=== PATIENT | male | born 1955 | race Caucasian/White ===

== ENCOUNTER 2016-06-16 20:45 | Emergency (ER) | payer MEDICARE, MEDICAID ==
[~2016-06-16] VITALS: Ht 165.1 cm; Wt 90.9 kg
[~2016-06-16 20:45] MED LIST: AMLO10TA5 PO; ASA325 PO; CLOP75TA14 PO; LISINOPRIL PO; METO25T PO; SPRN50T PO; ZOC20 PO
[2016-06-16 21:02] VITALS: BP 219/123; PULSE 66; RESP 24; O2SAT 96
--- NOTE | 2016-06-16 22:02 | DRSVH ---
PROCEDURE: X-RAY CHEST ONE VIEW, PORTABLE ([id number]) INDICATIONS: Respiratory distress TECHNIQUE: One view of the chest was acquired. COMPARISON: None. FINDINGS: Surgical changes and devices: None. Lungs and pleura: No pleural effusions or pneumothorax. Lungs are clear. Mediastinum: Mediastinal contours appear normal. Heart size is normal. Bones and chest wall: No suspicious bony lesions. Overlying soft tissues appear unremarkable. IMPRESSION: No acute pulmonary process. Dictated by: Mari Simpson M.D. on 06/16/2016 at 22:01 Approved by: Mari Simpson M.D. on 06/16/2016 at 22:01
[2016-06-16 23:03] LABS: BASOPHILS % (AUTO) 0.2 % (0-3); MONOCYTES % (AUTO) 6.5 % (4-12); Mean Corpuscular Hemoglobin 24.4 pg (27.0-35.0); Mean Corpuscular Volume 77.8 fL (81-100); NEUTROPHILS % (AUTO) 31.2 % (40-74); Platelet Count 241 bil/L (150-400)
[2016-06-16 23:15] LABS: TROPONIN T 0.01 ug/L (0.0-0.011)
--- NOTE | 2016-06-16 23:17 | ED.REPORT ---
HPI-Dyspnea / Wheezing Date of Service Jun 16, 2016 ED Provider: Francisco Javier Pedraza MD This is a 60 year old male with a history of cardiac stenting presenting to the emergency department due to shortness of breath that began days ago. Associated symptoms include generalized weakness and malaise. Also reports bilateral flank pain that began 3 days ago that is now resolved. He denies any changes in symptoms today. Denies cough, chest pain, nausea, vomiting, constipation, diarrhea, abdominal pain, fever, or chills. Nursing Notes Stated Complaint: SHORT OF BREATH, NO ENERGY Chief Complaint: Respiratory Complaints Nursing Notes Reviewed: Yes Allergies: Coded Allergies: No Known Allergies (Verified Allergy, Unknown, 06/16/16) Scheduled AmLODIPine-Expunged Drug, Do Not Renew! (AmLODIPine-Expunged Drug, Do Not Renew! ) 10 Mg Tablet 10 MG PO DAILY Aspirin-Expunged Drug, Do Not Renew! (Aspirin-Expunged Drug, Do Not Renew!) 325 Mg Tablet 325 MG PO DAILY Clopidogrel-Expunged Drug, Do Not Renew! (Plavix-Expunged Drug, Do Not Renew!) 75 Mg Tablet 75 MG PO DAILY Lisinopril-Expunged Drug, Do Not Renew! (Lisinopril-Expunged Drug, Do Not Renew! ) 5 Mg Tablet 5 MG PO BID Metoprolol Tart-Expunged Drug, Do Not Renew! (Metoprolol Tart-Expunged Drug, Do Not Renew!) 25 Mg Tablet 50 MG PO TID Simvastatin-Expunged Drug, Choose New Med! (Simvastatin-Expunged Drug, Choose New Med!) 20 Mg Tablet 20 MG PO HS Spironolactone-Expunged Drug, Do Not Renew! (Spironolactone-Expunged Drug, Do Not Renew!) 50 Mg Tablet 25 MG PO DAILY General Time Seen by MD: 23:15 Chief Complaint Chest pain Hx Obtained From: Patient Arrived By: Walk-in Sudden in Onset?: Yes Onset Occurred: Just prior to arrival Symptom Duration: Since onset Severity: Current: Mild Pertinent Negative: Pt denies other symptoms Recent Healthcare: No recent doctor visit, No recent hospitalization Similar Sx Previous: No Past Medical History Past Medical History Hx of substance abuse Past Surgical History Cardiac stenting Smoking History Former Smoker Ambulatory Status Independent Review of Systems Constitutional: Reports: Malaise, Weakness - generalized, Denies: Chills, Fever Respiratory: Reports: Shortness of breath, Denies: Non-productive cough Cardiovascular: Denies: Chest pain Complete sys rev & neg: except as marked. GI: Denies: Abdominal pain, Nausea, Vomiting Female: Reports: Flank pain Physical Exam Initial Vital Signs Vital Signs (First) Date Time Temp Pulse Resp B/P Pulse Ox O2 Delivery O2 Flow Rate FiO2 06/16/16 21:02 36.6 66 24 219/123 96 Room Air Initial VS: Reviewed, Vital signs abnormal Head / Eyes: Atraumatic, Normocephalic, PERRL ENT: Mucous membranes moist, Conjunctiva normal, No scleral icterus Abdomen / GI: Soft, Non-tender, No guarding, No rebound, No distention Extremities: Vascular intact, Neuro intact, No swelling, No tenderness Skin: Warm, Dry, No cyanosis Neurologic: Alert, Oriented, Nonfocal Psychiatric: Mood/affect normal, Behavior normal, Normal thought content General/Constitutional: Awake, Alert Neck: Atraumatic, Supple, No meningismus, Full range of motion, No swelling, Non-tender, No masses Respiratory / Chest: Breath sounds NL, Breath sounds = bilat, No respiratory distress, No rales, No rhonchi Cardiovascular: Heart rate NL, Regular rhythm, Heart sounds NL, Peripheral circulation NL Interpretation & Diagnostics Lab Results Interpretation Result Diagram: 06/16/165 06/16/160 Test 06/16/16 22:30 06/16/16 22:55 06/17/16 00:00 Sodium Level 136mEq/L (134-144) Potassium Level 3.8mEq/L (3.5-5.2) Chloride Level 98mEq/L (97-108) Carbon Dioxide Level 20mmol/L (18-29) Blood Urea Nitrogen 13mg/dL (6-24) Creatinine 0.86mg/dL (0.76-1.27) Estimat Glomerular Filtration Rate 97mL/min (>59) Glucose Level 102mg/dL (60-99) Calcium Level 8.7mg/dL (8.5-10.1) Magnesium Level 2.0mg/dL (1.6-2.6) Total Bilirubin 0.4mg/dL (0.0-1.2) Aspartate Amino Transf (AST/SGOT) 33U/L (0-50) Alanine Aminotransferase (ALT/SGPT) 20U/L (0-44) Alkaline Phosphatase 52U/L (25-150) Troponin T 0.010ug/L (0.0-0.011) Total Protein 8.1g/dL (6.4-8.4) Albumin 3.9g/dL (3.4-5.0) White Blood Count 16.4th/mm3 (3.8-10.1) Red Blood Count 5.08mil/mm3 (4.40-5.80) Hemoglobin 12.4g/dL (13.8-17.2) Hematocrit 39.5% (41.0-50.0) Mean Corpuscular Volume 77.8fL (81-100) Mean Corpuscular Hemoglobin 24.4pg (27.0-35.0) Mean Corpuscular Hemoglobin Concent 31.4% (32.0-37.0) Red Cell Distribution Width 17.7% (12.3-15.4) Platelet Count 241bil/L (150-400) Neutrophils (%) (Auto) 31.2% (40-74) Lymphocytes (%) (Auto) 60.9% (14-46) Monocytes (%) (Auto) 6.5% (4-12) Eosinophils (%) (Auto) 1.0% (0-5) Basophils (%) (Auto) 0.2% (0-3) Hold [place] Top Tube Received (Received) Hold Urine Received (Received) Lab values outside NL range: no clinical significance. Lab Results Interpretation: Elevated white blood ECG Interpretation ECG Interpretation: NSR at a rate of 63 LVH with secondary repolarization abnormality Probable inferior infarct Time: 23:58 Interpreted by: ED physician X-Ray Chest Interpretation Chest Xray Interpretation: IMPRESSION: No acute pulmonary process. Dictated by: Mari Simpson M.D. on 06/16/2016 at 22:01 Approved by: Mari Simpson M.D. on 06/16/2016 at 22:01 Re-Eval/Medical Decision Med Decision/Clinical Course T10-year-old male who has a several day history of general malaise and some mild respiratory difficulty with no acute exacerbation tonight, he simply got tired of dealing with it.. No abnormalities are found on laboratory testing with the exception of an elevated white count. His chest x-ray is normal. EKG and troponin are negative. Because of the duration of his symptoms it does not seem necessary or helpful to do a repeat troponin. Re-Evaluation/Progress : Time of Eval: 00:30 Re-Evaluation/Progress Note: Discussed lab results and plan for discharge. Pt understands and agrees with plan, all questions addressed. Counseled Regarding: Diagnosis, Lab results, Need for follow-up, When/why to return to ED Discharge & Departure Impression: Primary Impression: Weakness Additional Impression: Dyspnea Dyspnea type: unspecified Qualified Code: R06.00 - Dyspnea, unspecified Disposition: Home Discharge Condition All VS Reviewed: Yes Condition: Stable Additional Instructions: There is no cause found at this time for your symptoms. Your white blood count is mildly elevated, indicating visits her that there may be an infection somewhere, but no location for the infection was found on physical exam or laboratory testing. Your chest x-ray is normal. Your EKG is normal. Your heart enzyme tests is normal. Your urine is normal. Urine culture is pending and we will call you if there are any bacteria there. Follow-up with Radha Dotson if you have any new or worsening symptoms. Referrals: Stephanie Pruitt PA-C (PCP) Scribe Attestation Portions of this note were transcribed by Ria Yanes. I, Dr. Pedraza personally performed the history, physical exam and medical decision-making; I reviewed and confirmed the accuracy of the information in the transcribed note. Signed by: tavares Quach. 06/16/2016, 06:00. Francisco Javier Pedraza MD Jun 16, 2016 23:17 RAI YANES Jun 16, 2016 23:20
[2016-06-16 23:19] VITALS: BP 169/80; PULSE 60; RESP 20; O2SAT 97
[2016-06-16] MEDS ORDERED: Furosemide 10 mg/mL 2 mL Inj IVPUSH ONE (23:20)
[2016-06-17 00:52] VITALS: BP 182/70; PULSE 65; RESP 24; O2SAT 95
== END 2016-06-17 00:53 | disposition home or self-care (01) ==
LOC: SED 20:45
DX: R53.1 Weakness (principal); R06.00 Dyspnea, unspecified; R53.81 Other malaise; R10.31 Right lower quadrant pain; R10.32 Left lower quadrant pain; Z95.5 Presence of coronary angioplasty implant and graft; Z87.891 Personal history of nicotine dependence